=== PATIENT | male | born 1945 | race Caucasian/White ===

== ENCOUNTER 2019-06-20 07:44 | Day surgery (SDC) | payer OTHER ==
[2019-06-15 15:55] VITALS: BMI 33.7
[2019-06-20] MEDS ORDERED: PROPOFOL 20 ML ONE ×5 (07:51→09:44)
[2019-06-20] MEDS ORDERED: LIDOCAINE HCL/PF 2% SDV 5ML VIAL ONE (08:55)
[2019-06-20 11:59] VITALS: PULSE 51; TEMP 97.4
[2019-06-20 12:01] VITALS: BP 128/75
--- NOTE | 2019-06-22 16:20 | PATH ---
Surgical Pathology Report Patient Name: MARANDA PANIAGUA [facility]. Rec. #: [id number] /Age/Gender: 1945 (Age: 73) / M Account: [id number] [facility] Taken: 06/20/2019 Received: 06/20/2019 Reported: 06/22/2019 Physicians: Minor Mireles M.D. Specimen(s) Received A: BX POLYP SPLENIC FLEXURE B: BX POLYP RIGHT COLON C: BX POLYP TRANSVERSE COLON D: HOT SNARE POLYPECTOMY PROXIMAL LEFT COLON X2 E: HOT SNARE POLYPECTOMY PROXIMAL SIGMOID @ 45CM F: HOT SNARE POLYPECTOMY VILLOUS LESION RECTUM Clinical History History of polyps Postoperative diagnosis: Colon polyps, villous lesion, diverticulosis Final Diagnosis A. SPLENIC FLEXURE, POLYP, BIOPSY: TUBULAR ADENOMA. B. RIGHT COLON, POLYP, BIOPSY: TUBULAR ADENOMA. C. TRANSVERSE COLON, POLYP, BIOPSY: TUBULAR ADENOMA. D. PROXIMAL LEFT COLON, POLYPS (X2), HOT SNARE POLYPECTOMY: TUBULAR ADENOMAS (2). E. PROXIMAL, SIGMOID AT 45 CM, POLYP, HOTSNARE POLYPECTOMY: TUBULAR ADENOMA. F. 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 (SEE NOTE). Note: The differential includes malignant polyp, however, deeper invasion cannot be excluded in this material. Case reviewed intradepartmentally with consensus on diagnosis. Microsatellite instability (MSI) studies are being performed and the results will be reported separately in an addendum. Case discussed with Dr. Minor Mirelse on 06/22/19. Electronically Signed Nicci Beckwith M.D. Addendum Reported: 06/23/2019 Addendum Diagnosis Colorectal biomarkers: Immunohistochemistry (IHC) Testing for Mismatch Repair (MMR) Proteins _X_ MLH1 _X_ Intactnuclear expression _X_ MSH2 _X_ Intact nuclear expression _X__ MSH6 _X_ Intact nuclear expression _X_ PMS2 _X_ Intact nuclear expression IHC Interpretation _X_ No loss of nuclear expression of MMR proteins: low probability of microsatellite instability-high(MSI-H). Note: There are exceptions to the above IHC interpretations. These results should not be considered in isolation, and clinical correlation with genetic counseling is recommended to assess the need for germline testing. Nicci Beckwith M.D. Gross Description A. Received in formalin, labeled "biopsy polyp splenic flexure" is a murillo, irregular portion of soft tissue measuring 0.4 cm. in greatest dimension. The specimen is submitted in toto in one cassette. B. Received in formalin, labeled "biopsy polyp right colon" is a murillo, irregular portion of soft tissue measuring 0.5 cm. in greatest dimension. The specimen is submitted in toto in one cassette. C. Received in formalin, labeled "biopsy polyp transverse colon" are 2 murillo, polypoid portions of soft tissue measuring 0.7 and 0.9 cm. in greatest dimension. The specimens are submitted in toto in one cassette. D. Received in formalin, labeled "polypectomy proximal left colon x2" are 2 murillo, polypoid portions of soft tissue averaging 0.6 cm. in greatest dimension. The specimens are submitted in toto in one cassette. E. Received in formalin labeled "polypectomy proximal sigmoid at 45 cm," is a 1.7 x 1.3 x 0.6 cm murillo, polypoid portion of soft tissue. The specimen is bisected and entirely submitted in one cassette. F. Received in formalin, labeled "villous lesion rectum" are 9 murillo, irregular portions of soft tissue ranging from 0.3-0.7 cm. in greatest dimension. The specimens are submitted in toto in one cassette. 06/21/2019 [facility]06/21/2019
== END 2019-06-20 10:30 | disposition home or self-care (01) ==
LOC: FASU-ENDO 07:44
PROVIDERS: ATTEND Internal Medicine Gastroenterology
PROC: 0DBL8ZX Excision of Transverse Colon, Via Natural or Artificial Opening Endoscopic, Diagnostic (ICD-10-PCS; 2019-06-20)
PROC: 0DBP8ZX Excision of Rectum, Via Natural or Artificial Opening Endoscopic, Diagnostic (ICD-10-PCS; 2019-06-20)
PROC: 3E0H8GC Introduction of Other Therapeutic Substance into Lower GI, Via Natural or Artificial Opening Endoscopic (ICD-10-PCS; 2019-06-20)
PROC: 0DBP8ZX Excision of Rectum, Via Natural or Artificial Opening Endoscopic, Diagnostic (ICD-10-PCS; principal; 2019-06-20 09:02)
DX: Z86.010 Personal history of colon polyps (principal); C20 Malignant neoplasm of rectum; D12.2 Benign neoplasm of ascending colon; D12.3 Benign neoplasm of transverse colon; D12.4 Benign neoplasm of descending colon; D12.5 Benign neoplasm of sigmoid colon; D12.8 Benign neoplasm of rectum
CPT/HCPCS: 88305-TC

== ENCOUNTER 2022-01-01 07:54 | Day surgery (SDC) | payer OTHER ==
[2021-12-26 12:14] VITALS: BMI 35.4
[2022-01-01 09:47] VITALS: TEMP 97.8
[2022-01-01 10:26] VITALS: BP 110/65; PULSE 66
== END 2022-01-01 10:27 | disposition home or self-care (01) ==
LOC: FASU-ENDO 07:54
PROVIDERS: ATTEND Internal Medicine Gastroenterology
PROC: 0DBP8ZX Excision of Rectum, Via Natural or Artificial Opening Endoscopic, Diagnostic (ICD-10-PCS; 2022-01-01)
PROC: 0DBL8ZX Excision of Transverse Colon, Via Natural or Artificial Opening Endoscopic, Diagnostic (ICD-10-PCS; 2022-01-01)
PROC: 0DBK8ZX Excision of Ascending Colon, Via Natural or Artificial Opening Endoscopic, Diagnostic (ICD-10-PCS; principal; 2022-01-01 08:56)
DX: Z12.11 Encounter for screening for malignant neoplasm of colon (principal); D12.2 Benign neoplasm of ascending colon; D12.3 Benign neoplasm of transverse colon; K62.1 Rectal polyp; K57.30 Diverticulosis of large intestine without perforation or abscess without bleeding; K64.8 Other hemorrhoids; Z86.010 Personal history of colon polyps
CPT/HCPCS: 88305-TC